=== PATIENT | female | born 1965 | race Caucasian/White ===

== ENCOUNTER 2016-09-07 01:31 | Emergency (ER) | payer MEDICAID ==
[~2016-09-07] VITALS: Ht 152.4 cm; Wt 113.4 kg
[~2016-09-07 01:31] MED LIST: ATEN-171 PO; GLIM2TAB PO; METF1000 PO
--- NOTE | 2016-09-07 01:39 | NUR ---
PT HAS HAD H/A FOR 5 DAYS. WAS SEEN AT CLINIC AND HAD BLOOD DRAWN.THEY CALLED HER AT HOME AND SHE WAS TOLD POTASSIUM ELEVATED.PT STATES WORST H/A SHE HAS HAD LATELY PT STATES H/A NEVER LAST THIS LONG... PT ALERT, ORIENTED X 4, NO RESP DISTRESS NOTED OR REPORTED UPON ASSESSMENT...MD AT BEDSIDE...
[2016-09-07] MEDS ORDERED: INSULIN (01:51)
[2016-09-07] MEDS ORDERED: METOCLOPRAMIDE HCL 10 MG/2 ML VIAL IM ONE (02:15)
[2016-09-07] MEDS ORDERED: HYDROMORPHONE 1 MG/1 ML DISP.SYRIN IM ONE (02:15)
[2016-09-07] MEDS ORDERED: BENZTROPINE MESYLATE 2 MG/2 ML AMPUL IM ONE (02:15)
[2016-09-07] MEDS ORDERED: METOCLOPRAMIDE HCL 10 MG/2 ML VIAL ONE (02:17)
[2016-09-07] MEDS ORDERED: BENZTROPINE MESYLATE 2 MG/2 ML AMPUL ONE (02:17)
[2016-09-07] MEDS ORDERED: HYDROMORPHONE 2 MG/1 ML DISP.SYRIN ONE (02:18)
[2016-09-07 03:20] LABS: ALANINE AMINOTRANSFERASE 31 U/L (14-59); ALBUMIN 3.6 g/dL (3.4-5.0); ALKALINE PHOSPHATASE 94 U/L (50-136); ASPARTATE AMINOTRANSFERASE 17 U/L (15-37); BILIRUBIN,TOTAL 0.3 mg/dL (0.2-1.0); CALCIUM 9.3 mg/dL (8.5-10.1); CARBON DIOXIDE 27 mmol/L (21-32); CHLORIDE 103 mmol/L (98-107); CREATININE 0.7 mg/dL (0.6-1.3); GFR 88 mL/min (>60); GLUCOSE 212 mg/dL (74-106); LIPASE 116 U/L (73-393); POTASSIUM 3.8 mmol/L (3.5-5.1); SODIUM SERUM 138 mmol/L (136-145); UREA NITROGEN, BLOOD 16 mg/dL (7-18)
[2016-09-07 03:30] LABS: ACETONE, SERUM NEGATIVE (NEGATIVE)
[2016-09-07 03:36] LABS: BASOPHILS # (AUTO) 0.1 K/uL (0.0-8.0); BASOPHILS % (AUTO) 0.7 % (0.0-2.0); EOSINOPHILS # (AUTO) 0.2 K/uL (0.0-0.7); EOSINOPHILS % (AUTO) 2.1 % (0.0-7.0); HEMATOCRIT 38.5 % (37-47); HEMOGLOBIN 12.6 G/DL (12.0-16.0); LYMPHOCYTES % (AUTO) 32.6 % (20.5-51.5); MEAN CORPUSCULAR HEMOGLOBIN 25.8 UUG (27.0-31.0); MEAN CORPUSCULAR HGB CONC 33 g/dL (32.0-37.0); MEAN CORPUSCULAR VOLUME 78.6 FL (81.0-99.0); MONOCYTES # (AUTO) 0.7 K/UL (0.1-1.30); MONOCYTES % (AUTO) 7.2 % (0.0-11.0); NEUTROPHILS # (AUTO) 5.2 K/UL (1.8-8.9); NEUTROPHILS % (AUTO) 57.4 % (38.5-71.5); PLATELET COUNT (AUTO) 243 K/UL (150-450); RED BLOOD CELL COUNT(AUTO) 4.89 MIL/UL (4.2-5.4); RED CELL DISTRIBUTION WIDTH 12.8 % (11.5-14.5); WHITE BLOOD COUNT (AUTO) 9.2 K/UL (4.0-11.2)
--- NOTE | 2016-09-07 04:15 | NUR ---
Patient discharged to home in stable conditon. Written and verbal after care instructions given. Patient verbalizes understanding of instructions. Pt walked out of ER unassisted with son and belongings at side...
[2016-09-07 04:30] VITALS: BP 142/94
== END 2016-09-07 04:32 | disposition home or self-care (01) ==
LOC: ER 01:35
DX: G43.909 Migraine, unspecified, not intractable, without status migrainosus (principal); E66.9 Obesity, unspecified; E11.65 Type 2 diabetes mellitus with hyperglycemia; Z79.4 Long term (current) use of insulin
CPT/HCPCS: 36415; 80053; 82009; 82962; 83690; 85025; 96372 ×3; 99284; A4663; J0515; J1170; J2765

== ENCOUNTER 2016-09-08 16:15 | Emergency (ER) | payer MEDICAID ==
[~2016-09-08] VITALS: Ht 154.9 cm; Wt 102.5 kg
[~2016-09-08 16:15] MED LIST changes: +INSULIN
[2016-09-08] MEDS: PROMETHAZINE HCL 25 MG/1 ML VIAL IM ONE (16:46)
[2016-09-08] MEDS: HYDROMORPHONE 1 MG/1 ML DISP.SYRIN IM ONE (16:46)
[2016-09-08] MEDS ORDERED: HYDROMORPHONE 2 MG/1 ML DISP.SYRIN ONE (16:50)
[2016-09-08] MEDS ORDERED: PROMETHAZINE HCL 25 MG/1 ML VIAL ONE (16:50)
[2016-09-08 16:57] LABS: *URINE HCG, QUAL NEGATIVE (NEGATIVE)
--- NOTE | 2016-09-08 17:43 | NUR ---
Patient is resting comfortably in bed with eyes closed. PATIENT IS PAIN FREE AT THIS TIME.
--- NOTE | 2016-09-08 17:59 | NUR ---
1745-Patient discharged to home in stable conditon. Written and verbal after care instructions given to patient with distribution lead from ER registration staff. Patient verbalizes understanding of instructions. Patient left ER with steady gait. Patient said her son will drive her home.
== END 2016-09-08 18:01 | disposition home or self-care (01) ==
LOC: ER 16:19
DX: R51 Headache (principal); F41.9 Anxiety disorder, unspecified; F41.0 Panic disorder [episodic paroxysmal anxiety]; E66.9 Obesity, unspecified
CPT/HCPCS: 70450; 84703; A4663; J1170; J2550

== ENCOUNTER 2017-04-10 12:16 | Emergency (ER) | payer MEDICAID ==
[~2017-04-10] VITALS: Ht 152.4 cm; Wt 100.2 kg
[2017-04-10] MEDS ORDERED: SERTRALINE 50 MG (12:32)
[2017-04-10] MEDS ORDERED: ASPIR LOW 81 MG (12:32)
[2017-04-10] MEDS ORDERED: IBUPROFEN TAB 600MG (12:32)
[2017-04-10] MEDS ORDERED: LOSARTAN POT (12:32)
[2017-04-10] MEDS ORDERED: methylPREDNISolone SOD SUCC 125 MG/2 ML VIAL IV ONE (13:15)
[2017-04-10] MEDS ORDERED: diphenhydrAMINE 50 MG/1 ML VIAL IV ONE (13:15)
[2017-04-10] MEDS ORDERED: IV NORMAL SALINE 500 ML IV ONE (13:15)
[2017-04-10] MEDS ORDERED: MORPHINE SULFATE 2 MG/1 ML DISP.SYRIN IV ONE (13:15)
[2017-04-10] MEDS ORDERED: ONDANSETRON IV *ER 4 MG/2 ML VIAL IV ONE (13:15)
[2017-04-10 13:19] LABS: BASOPHILS # (AUTO) 0.1 K/uL (0.0-8.0); BASOPHILS % (AUTO) 0.7 % (0.0-2.0); EOSINOPHILS # (AUTO) 0.1 K/uL (0.0-0.7); EOSINOPHILS % (AUTO) 1.3 % (0.0-7.0); HEMATOCRIT 43.6 % (31.2-41.9); HEMOGLOBIN 14.4 g/dL (10.9-14.3); LYMPHOCYTES # (AUTO) 2.3 K/uL (20.0-40.0); LYMPHOCYTES % (AUTO) 26.2 % (20.5-51.5); MEAN CORPUSCULAR HEMOGLOBIN 26.3 uug (24.7-32.8); MEAN CORPUSCULAR HGB CONC 33 g/dL (32.3-35.6); MEAN CORPUSCULAR VOLUME 79.4 fL (75.5-95.3); MONOCYTES # (AUTO) 0.4 K/uL (2.0-10.0); MONOCYTES % (AUTO) 4.6 % (0.0-11.0); NEUTROPHILS # (AUTO) 5.8 K/uL (1.8-8.9); NEUTROPHILS % (AUTO) 67.2 % (38.5-71.5); PLATELET COUNT (AUTO) 221 K/uL (179-408); RED BLOOD CELL COUNT(AUTO) 5.49 MIL/uL (3.63-4.92); WHITE BLOOD COUNT (AUTO) 8.7 K/uL (3.8-11.8)
[2017-04-10] MEDS ORDERED: methylPREDNISolone SOD SUCC 125 MG/2 ML VIAL ONE (13:32)
[2017-04-10] MEDS ORDERED: ONDANSETRON 4 MG/2 ML VIAL ONE (13:32)
[2017-04-10] MEDS ORDERED: diphenhydrAMINE 50 MG/1 ML VIAL ONE (13:32)
[2017-04-10] MEDS ORDERED: MORPHINE SULFATE 2 MG/1 ML DISP.SYRIN ONE (13:33)
[2017-04-10 13:37] LABS: CREATININE 0.7 mg/dL (0.6-1.3); POTASSIUM 4.5 mmol/L (3.5-5.1)
[2017-04-10 13:43] LABS: BILIRUBIN,TOTAL 0.4 mg/dL (0.2-1.0); TOTAL PROTEIN, SERUM 7.4 g/dL (6.4-8.2)
--- NOTE | 2017-04-10 13:56 | NUR ---
Pt resting in gurney with no s/s of acute distress noted, pt states she feels much better and her pain has improved (3/10).
[2017-04-10 16:03] LABS: *BILIRUBIN,URIN NEGATIVE (NEGATIVE); *BLOOD, URINE 3+ (NEGATIVE); *CLARITY,URINE SLIGHTLY CLOUDY (CLEAR); *COLOR,URINE YELLOW (YELLOW); *KETONES,URINE NEGATIVE (NEGATIVE); *PROTEIN,URINE NEGATIVE (NEGATIVE); *UROBILINOGEN,URINE 0.2 E.U./dl (NORMAL); LEUKOCYTE ESTERASE ,URINE 1+ (NEGATIVE); NITRITE, URINE NEGATIVE (NEGATIVE); PH,URINE 5.5 (5.0-8.0); UGLUCOSE TRACE (NEGATIVE)
--- NOTE | 2017-04-10 16:03 | NUR ---
Patient discharged to home in stable conditon. Written and verbal after care instructions given. Patient verbalizes understanding of instructions.translation provided tospanish by haydee girard.
[2017-04-10 16:06] VITALS: BP 140/79
[2017-04-10 16:07] LABS: BACTERIA,URINE FEW /HPF (NONE SEEN); RBC,URINE 0-3 /HPF (0-3)
[2017-04-10 16:08] LABS: SQUAMOUS EPITHELIAL CELL,UR MODERATE /HPF (NONE SEEN)
== END 2017-04-10 16:13 | disposition home or self-care (01) ==
LOC: ER 12:16
DX: G43.909 Migraine, unspecified, not intractable, without status migrainosus (principal); E11.9 Type 2 diabetes mellitus without complications; I10 Essential (primary) hypertension; Z79.4 Long term (current) use of insulin; Z88.8 Allergy status to other drugs, medicaments and biological substances
CPT/HCPCS: 36415; 70030-TC; 70450; 71010; 85025; 93005; A4663; J1200; J2270; J2405; J2930; J7030

== ENCOUNTER 2017-04-17 06:20 | Emergency (ER) | payer MEDICAID ==
[~2017-04-17] VITALS: Ht 162.6 cm; Wt 100.2 kg
[~2017-04-17 06:20] MED LIST changes: +ASPIR LOW 81 MG; -GLIM2TAB PO; +IBUPROFEN TAB 600MG; +LOSARTAN POT; +SERTRALINE 50 MG
[2017-04-17] MEDS ORDERED: diphenhydrAMINE 50 MG/1 ML VIAL IM ONE (07:15)
[2017-04-17] MEDS ORDERED: METOCLOPRAMIDE HCL 10 MG/2 ML VIAL IM ONE (07:15)
[2017-04-17] MEDS ORDERED: diphenhydrAMINE 50 MG/1 ML VIAL ONE (07:20)
[2017-04-17] MEDS ORDERED: METOCLOPRAMIDE HCL 10 MG/2 ML VIAL ONE (07:21)
--- NOTE | 2017-04-17 07:30 | NUR ---
PATIENT WAS SEEN BY MD FOR HEADACHE. REGLAN AND BENADRYL WERE GIVEN IV BY OTHER NURSE. PATIENT STATES HE HEAD HAS DIMINISHED.
--- NOTE | 2017-04-17 08:23 | NUR ---
PATIENT STATES SHE FEELS MUCH BETTER. HER SON IS AT THE BEDSIDE AND STATES HE WILL DRIVE HOME. DC, RX (INCLUDING PRECAUTIONS) GIVEN AND EXPLAINED TO PATIENT AND SON WHO STATE THEY UNDERSTAND ALL INSTRUCTIONS.
[2017-04-17 08:35] VITALS: BP 145/85
== END 2017-04-17 08:36 | disposition home or self-care (01) ==
LOC: ER 06:26
DX: G43.909 Migraine, unspecified, not intractable, without status migrainosus (principal); E11.9 Type 2 diabetes mellitus without complications; Z79.4 Long term (current) use of insulin; Z88.8 Allergy status to other drugs, medicaments and biological substances
CPT/HCPCS: 96372 ×2; 99284; A4663; J1200; J2765

== ENCOUNTER 2018-01-09 09:06 | Emergency (ER) | payer MEDICAID ==
[~2018-01-09] VITALS: Ht 162.6 cm; Wt 104.3 kg
[~2018-01-09 09:06] MED LIST changes: -ASPIR LOW 81 MG; +ASPIR LOW 81 MG PO; -LOSARTAN POT; +LOSARTAN POT PO
[2018-01-09] MEDS ORDERED: PANTOPRAZOLE SODIUM 40 MG VIAL IV ONE (09:45)
[2018-01-09] MEDS ORDERED: NPH,100V SQ (09:54)
[2018-01-09] MEDS ORDERED: INSU100V28 SQ ×2 (09:54)
[2018-01-09 09:57] LABS: *BILIRUBIN,URIN NEGATIVE (NEGATIVE); *BLOOD, URINE NEGATIVE (NEGATIVE); *COLOR,URINE YELLOW (YELLOW); *KETONES,URINE 1+ (NEGATIVE); *PROTEIN,URINE NEGATIVE (NEGATIVE); *UROBILINOGEN,URINE 0.2 E.U./dl (NORMAL); LEUKOCYTE ESTERASE ,URINE TRACE (NEGATIVE); NITRITE, URINE NEGATIVE (NEGATIVE); PH,URINE 5.5 (5.0-8.0); UGLUCOSE NEGATIVE (NEGATIVE)
[2018-01-09 09:58] LABS: *CLARITY,URINE SLIGHTLY HAZY (CLEAR)
[2018-01-09 10:00] LABS: BASOPHILS # (AUTO) 0.1 K/uL (0.0-8.0); BASOPHILS % (AUTO) 0.7 % (0.0-2.0); EOSINOPHILS # (AUTO) 0.1 K/uL (0.0-0.7); EOSINOPHILS % (AUTO) 0.9 % (0.0-7.0); HEMATOCRIT 42.1 % (31.2-41.9); HEMOGLOBIN 14.3 g/dL (10.9-14.3); LYMPHOCYTES # (AUTO) 2.3 K/uL (20.0-40.0); LYMPHOCYTES % (AUTO) 27.4 % (20.5-51.5); MEAN CORPUSCULAR HEMOGLOBIN 27.3 uug (24.7-32.8); MEAN CORPUSCULAR HGB CONC 34 g/dL (32.3-35.6); MEAN CORPUSCULAR VOLUME 80.8 fL (75.5-95.3); MONOCYTES # (AUTO) 0.4 K/uL (2.0-10.0); MONOCYTES % (AUTO) 4.4 % (0.0-11.0); NEUTROPHILS # (AUTO) 5.5 K/uL (1.8-8.9); NEUTROPHILS % (AUTO) 66.6 % (38.5-71.5); PLATELET COUNT (AUTO) 221 K/uL (179-408); RED BLOOD CELL COUNT(AUTO) 5.21 MIL/uL (3.63-4.92); WHITE BLOOD COUNT (AUTO) 8.3 K/uL (3.8-11.8)
[2018-01-09] MEDS ORDERED: PANTOPRAZOLE SODIUM 40 MG VIAL ONE (10:03)
[2018-01-09 10:04] LABS: BACTERIA,URINE FEW /HPF (NONE SEEN); RBC,URINE 0-3 /HPF (0-3)
[2018-01-09 10:05] LABS: MUCUS,URINE MODERATE /LPF (0-FEW); SQUAMOUS EPITHELIAL CELL,UR MODERATE /HPF (NONE SEEN)
[2018-01-09 10:07] LABS: CREATININE 0.7 mg/dL (0.6-1.3); POTASSIUM 3.8 mmol/L (3.5-5.1)
[2018-01-09 10:37] LABS: *URINE HCG, QUAL NEGATIVE (NEGATIVE)
[2018-01-09] MEDS ORDERED: LEVOFLOXACIN 500 MG TABLET ONE (12:12)
[2018-01-09] MEDS ORDERED: METRONIDAZOLE 500 MG TABLET ONE (12:12)
[2018-01-09] MEDS ORDERED: LEVOFLOXACIN 500 MG TABLET PO ONE (12:15)
[2018-01-09] MEDS ORDERED: METRONIDAZOLE 500 MG TABLET PO ONE (12:15)
--- NOTE | 2018-01-09 12:17 | NUR ---
Patient discharged to home in stable conditon. Written and verbal after care instructions given. Patient verbalizes understanding of instructions.
== END 2018-01-09 12:19 | disposition home or self-care (01) ==
LOC: ER 09:06
DX: K57.92 Diverticulitis of intestine, part unspecified, without perforation or abscess without bleeding (principal); E11.9 Type 2 diabetes mellitus without complications; Z88.8 Allergy status to other drugs, medicaments and biological substances
CPT/HCPCS: 36415; 74176; 76856; 80048; 81001; 84703; 85025; 96374; 99285; A4663; C9113

== ENCOUNTER 2018-09-04 08:30 | Emergency (ER) | payer MEDICAID ==
[~2018-09-04] VITALS: Ht 160 cm; Wt 104.3 kg
[~2018-09-04 08:30] MED LIST changes: -IBUPROFEN TAB 600MG; +INSU100V28 SQ; -INSULIN; +NPH,100V SQ; -SERTRALINE 50 MG
[2018-09-04] MEDS ORDERED: ONDANSETRON 4 MG/2 ML VIAL IV ONE (09:30)
[2018-09-04] MEDS ORDERED: IV NORMAL SALINE 1000 ML BAG IV ONE (09:30)
[2018-09-04] MEDS ORDERED: MORPHINE SULFATE 2 MG/1 ML DISP.SYRIN IV ONE (09:30)
--- NOTE | 2018-09-04 09:40 | NUR ---
Pt is in room #2a. dr Hayes evaluated the pt.
[2018-09-04 09:41] LABS: *BILIRUBIN,URIN NEGATIVE (NEGATIVE); *BLOOD, URINE NEGATIVE (NEGATIVE); *COLOR,URINE YELLOW (YELLOW); *KETONES,URINE NEGATIVE (NEGATIVE); *UROBILINOGEN,URINE 0.2 E.U./dl (NORMAL); LEUKOCYTE ESTERASE ,URINE TRACE (NEGATIVE); NITRITE, URINE NEGATIVE (NEGATIVE); UGLUCOSE NEGATIVE (NEGATIVE)
[2018-09-04 09:42] LABS: *CLARITY,URINE HAZY (CLEAR)
[2018-09-04 09:44] LABS: *URINE HCG, QUAL NEGATIVE (NEGATIVE)
[2018-09-04 09:52] LABS: BASOPHILS % (AUTO) 0.5 % (0.0-2.0); EOSINOPHILS # (AUTO) 0.3 K/uL (0.0-0.7); EOSINOPHILS % (AUTO) 3.1 % (0.0-7.0); HEMATOCRIT 41.6 % (31.2-41.9); HEMOGLOBIN 14.1 g/dL (10.9-14.3); LYMPHOCYTES % (AUTO) 22.5 % (20.5-51.5); MEAN CORPUSCULAR HEMOGLOBIN 26.8 uug (24.7-32.8); MEAN CORPUSCULAR HGB CONC 34 g/dL (32.3-35.6); MEAN CORPUSCULAR VOLUME 79.3 fL (75.5-95.3); MONOCYTES # (AUTO) 0.3 K/uL (2.0-10.0); MONOCYTES % (AUTO) 3.7 % (0.0-11.0); NEUTROPHILS # (AUTO) 6.1 K/uL (1.8-8.9); NEUTROPHILS % (AUTO) 70.2 % (38.5-71.5); PLATELET COUNT (AUTO) 241 K/uL (179-408); RED BLOOD CELL COUNT(AUTO) 5.25 MIL/uL (3.63-4.92); WHITE BLOOD COUNT (AUTO) 8.7 K/uL (3.8-11.8)
[2018-09-04 09:56] LABS: CREATININE 0.7 mg/dL (0.6-1.3); POTASSIUM 4.1 mmol/L (3.5-5.1)
[2018-09-04 09:58] LABS: BACTERIA,URINE MODERATE /HPF (NONE SEEN); RBC,URINE 0-3 /HPF (0-3); SQUAMOUS EPITHELIAL CELL,UR MANY /HPF (NONE SEEN); YEAST,URINE RARE /HPF (NONE SEEN)
[2018-09-04 10:02] LABS: BILIRUBIN,DIRECT 0.1 mg/dL (0.0-0.2); BILIRUBIN,TOTAL 0.4 mg/dL (0.2-1.0); TOTAL PROTEIN, SERUM 7.3 g/dL (6.4-8.2)
[2018-09-04] MEDS ORDERED: MORPHINE SULFATE 2 MG/1 ML DISP.SYRIN ONE (10:07)
[2018-09-04] MEDS ORDERED: ONDANSETRON 4 MG/2 ML VIAL ONE (10:08)
--- NOTE | 2018-09-04 12:10 | NUR ---
PT WAS D/C'd TO HOME D/C INSTRUCTIONS GIVEN TO THE PT.
[2018-09-04 12:12] VITALS: BP 136/84
== END 2018-09-04 12:16 | disposition home or self-care (01) ==
LOC: ER 08:30
DX: R10.32 Left lower quadrant pain (principal); R11.0 Nausea; E11.9 Type 2 diabetes mellitus without complications; Z88.8 Allergy status to other drugs, medicaments and biological substances; Z79.4 Long term (current) use of insulin; Z79.899 Other long term (current) drug therapy; Z79.82 Long term (current) use of aspirin
CPT/HCPCS: 36415; 74176; 76856; 80048; 80076; 81001; 84703; 85025; 96374; 96375; 99284; J2270; J2405; A4663; J7030

== ENCOUNTER 2018-09-04 22:25 | Emergency (ER) | payer MEDICAID ==
[~2018-09-04] VITALS: Ht 165.1 cm; Wt 99.8 kg
[2018-09-04] MEDS ORDERED: HYDROMORPHONE 1 MG/1 ML DISP.SYRIN IM ONE (23:00)
[2018-09-04] MEDS ORDERED: ONDANSETRON 4 MG/2 ML VIAL IM ONE (23:00)
[2018-09-04] MEDS ORDERED: HYDROMORPHONE 2 MG/1 ML DISP.SYRIN ONE (23:19)
[2018-09-04] MEDS ORDERED: ONDANSETRON 4 MG/2 ML VIAL ONE (23:19)
[2018-09-05 00:49] VITALS: BP 120/58
== END 2018-09-05 00:25 | disposition home or self-care (01) ==
LOC: ER 22:27
DX: G43.909 Migraine, unspecified, not intractable, without status migrainosus (principal); E11.9 Type 2 diabetes mellitus without complications; Z88.8 Allergy status to other drugs, medicaments and biological substances; Z79.4 Long term (current) use of insulin; Z79.899 Other long term (current) drug therapy
CPT/HCPCS: 96372 ×2; 99283; J1170; J2405; A4663

== ENCOUNTER 2020-02-06 18:27 | Emergency (ER) | payer MEDICAID ==
[~2020-02-06] VITALS: Ht 162.6 cm; Wt 100.7 kg
--- NOTE | 2020-02-06 18:50 | NUR ---
PT IS IN ROOM #1B. DR ARROYO EVALUATED THE PT.
[2020-02-06] MEDS ORDERED: KETOROLAC TROMETHAMINE 30 MG INJ IVP ONE (19:00)
[2020-02-06] MEDS ORDERED: PROCHLORPERAZINE EDISYLATE 10 MG/2 ML VIAL IV ONE (19:00)
[2020-02-06] MEDS ORDERED: diphenhydrAMINE 50 MG/1 ML VIAL IV ONE (19:00)
--- NOTE | 2020-02-06 19:05 | NUR ---
Assumed care for patient at this time from Marco ZUNIGA. Pt is AO x 4, greek speaking. Leandro assisted MD and RN in translating for patient, consent for IV contrast witnessed by RN. Pt is not in active distress at this time.
[2020-02-06 19:15] LABS: *BILIRUBIN,URIN NEGATIVE (NEGATIVE); *BLOOD, URINE NEGATIVE (NEGATIVE); *CLARITY,URINE CLEAR (CLEAR); *COLOR,URINE YELLOW (YELLOW); *KETONES,URINE NEGATIVE (NEGATIVE); *UROBILINOGEN,URINE 0.2 E.U./dl (NORMAL); LEUKOCYTE ESTERASE ,URINE NEGATIVE (NEGATIVE); NITRITE, URINE NEGATIVE (NEGATIVE); PH,URINE 5.5 (5.0-8.0); UGLUCOSE TRACE (NEGATIVE)
[2020-02-06 19:18] LABS: *URINE HCG, QUAL NEGATIVE (NEGATIVE)
[2020-02-06 19:27] LABS: BASOPHILS # (AUTO) 0.1 K/uL (0.0-8.0); EOSINOPHILS # (AUTO) 0.3 K/uL (0.0-0.7); EOSINOPHILS % (AUTO) 3.1 % (0.0-7.0); HEMATOCRIT 42.6 % (31.2-41.9); HEMOGLOBIN 14.1 g/dL (10.9-14.3); LYMPHOCYTES # (AUTO) 3.9 K/uL (20.0-40.0); LYMPHOCYTES % (AUTO) 40.4 % (20.5-51.5); MEAN CORPUSCULAR HEMOGLOBIN 26.7 uug (24.7-32.8); MEAN CORPUSCULAR HGB CONC 33 g/dL (32.3-35.6); MEAN CORPUSCULAR VOLUME 80.3 fL (75.5-95.3); MONOCYTES # (AUTO) 0.6 K/uL (2.0-10.0); MONOCYTES % (AUTO) 6.4 % (0.0-11.0); NEUTROPHILS # (AUTO) 4.8 K/uL (1.8-8.9); NEUTROPHILS % (AUTO) 49.1 % (38.5-71.5); WHITE BLOOD COUNT (AUTO) 9.7 K/uL (3.8-11.8)
[2020-02-06] MEDS ORDERED: diphenhydrAMINE 50 MG/1 ML VIAL ONE (19:27)
[2020-02-06] MEDS ORDERED: KETOROLAC TROMETHAMINE 30 MG INJ ONE (19:27)
[2020-02-06] MEDS ORDERED: PROCHLORPERAZINE EDISYLATE 10 MG/2 ML VIAL ONE (19:27)
[2020-02-06 19:33] LABS: CREATININE 0.7 mg/dL (0.6-1.3); POTASSIUM 4.2 mmol/L (3.5-5.1)
[2020-02-06 19:37] LABS: PLATELET COUNT (AUTO) 188 K/uL (179-408)
[2020-02-06 19:38] LABS: BILIRUBIN,DIRECT 0.1 mg/dL (0.0-0.2); BILIRUBIN,TOTAL 0.2 mg/dL (0.2-1.0); TOTAL PROTEIN, SERUM 7.6 g/dL (6.4-8.2)
[2020-02-06] MEDS ORDERED: IOHEXOL 300MG/ML 100 ML INFUS..BTL ONE (19:41)
[2020-02-06] MEDS ORDERED: IV NORMAL SALINE 250 ML IV ONE (19:41)
[2020-02-06] MEDS ORDERED: SWABABLE VALVE TRANSFER SET EA MC ONE (19:41)
--- NOTE | 2020-02-06 19:45 | NUR ---
Pt is down for CT at this time.
--- NOTE | 2020-02-06 20:05 | NUR ---
Back from CT, Law Firm Administrator at bedside.
--- NOTE | 2020-02-06 21:00 | NUR ---
Pt verbalized feeling better and having 0/10 pain. MD reevaluated pt and cleared for DC. IV removed. Catheter intact and site benign. Pressure and 4x4 gauze applied to site. No bleeding noted. Written and verbal after care instructions given in Dominican with Cori merino MD/RN teachings. Patient verbalizes understanding of instructions. Stressed follow up with PMD or specialist referred by ER MD, or return to ER for worsening s/s. Patient ambulated out of ER with steady gait, son will take pt home , left in stable condition.
[2020-02-06 21:02] VITALS: BP 142/95
== END 2020-02-06 21:00 | disposition home or self-care (01) ==
LOC: ER 18:29
DX: R10.9 Unspecified abdominal pain (principal); G43.909 Migraine, unspecified, not intractable, without status migrainosus; E66.01 Morbid (severe) obesity due to excess calories; Z68.38 Body mass index [BMI] 38.0-38.9, adult; R03.0 Elevated blood-pressure reading, without diagnosis of hypertension; E11.9 Type 2 diabetes mellitus without complications; Z79.84 Long term (current) use of oral hypoglycemic drugs; Z79.82 Long term (current) use of aspirin; K57.30 Diverticulosis of large intestine without perforation or abscess without bleeding; N83.201 Unspecified ovarian cyst, right side
CPT/HCPCS: 36415; 74177; 76705; 80048; 80076; 81001; 83690; 84703; 85025; 96374; 96375; 99285; J0780; J1200; J1885; Q9967; J7050

== ENCOUNTER 2021-03-05 05:57 | Emergency (ER) | payer MEDICAID ==
[~2021-03-05] VITALS: Ht 165.1 cm; Wt 74.8 kg
[2021-03-05] MEDS ORDERED: LIDOCAINE VISCUS 2% 15 ML UDC MM ONE (07:00)
[2021-03-05] MEDS ORDERED: IV NORMAL SALINE 1000 ML BAG IV ONE (07:00)
[2021-03-05] MEDS ORDERED: FAMOTIDINE. 20 MG/2 ML VIAL IV ONE ×2 (07:00→07:41)
[2021-03-05] MEDS ORDERED: diphenhydrAMINE 50 MG/1 ML VIAL IV ONE (07:00)
[2021-03-05] MEDS ORDERED: METOCLOPRAMIDE HCL 10 MG/2 ML VIAL IV ONE (07:00)
[2021-03-05] MEDS ORDERED: MAG HYDROX/AL HYDROX/SIMETH 30 ML LIQUID UDC PO ONE (07:00)
[2021-03-05 07:32] LABS: MEAN CORPUSCULAR HEMOGLOBIN 26.9 uug (24.7-32.8); MEAN CORPUSCULAR VOLUME 80.2 fL (75.5-95.3); PLATELET COUNT (AUTO) 217 K/uL (179-408)
[2021-03-05 07:39] LABS: CREATININE 0.7 mg/dL (0.6-1.3); POTASSIUM 4.4 mmol/L (3.5-5.1)
[2021-03-05] MEDS ORDERED: METOCLOPRAMIDE HCL 10 MG/2 ML VIAL ONE (07:40)
[2021-03-05] MEDS ORDERED: diphenhydrAMINE 50 MG/1 ML VIAL ONE (07:40)
[2021-03-05] MEDS ORDERED: LIDOCAINE VISCUS 2% 15 ML UDC ONE (07:41)
[2021-03-05] MEDS ORDERED: MAG HYDROX/AL HYDROX/SIMETH 30 ML LIQUID UDC ONE (07:41)
[2021-03-05 07:45] LABS: BILIRUBIN,DIRECT 0.1 mg/dL (0.0-0.2); BILIRUBIN,TOTAL 0.3 mg/dL (0.2-1.0); TOTAL PROTEIN, SERUM 7.5 g/dL (6.4-8.2)
[2021-03-05] MEDS ORDERED: ACETAMINOPHEN 325 MG TABLET PO ONE (08:00)
--- NOTE | 2021-03-05 08:16 | NUR ---
Pt returned to unit from radiology. States improvement in S/S with no more pain to abd. Statea MCKENZIE 07/27. PO medication administered per order. Pt denies any adverse event from medication previously administered, feeling drowzy. Resting supine in NAD at this time.
[2021-03-05 08:20] LABS: *BILIRUBIN,URIN NEGATIVE (NEGATIVE); *BLOOD, URINE NEGATIVE (NEGATIVE); *CLARITY,URINE CLEAR (CLEAR); *COLOR,URINE YELLOW (YELLOW); *KETONES,URINE 1+ (NEGATIVE); *UROBILINOGEN,URINE 0.2 E.U./dl (NORMAL); LEUKOCYTE ESTERASE ,URINE NEGATIVE (NEGATIVE); NITRITE, URINE NEGATIVE (NEGATIVE); PH,URINE 5.5 (5.0-8.0); UGLUCOSE TRACE (NEGATIVE)
[2021-03-05 08:21] LABS: *URINE HCG, QUAL NEG (NEGATIVE)
[2021-03-05] MEDS ORDERED: ACETAMINOPHEN 325 MG TABLET ONE (08:21)
[2021-03-05] MEDS ORDERED: ONDA4TAB5 PO (09:05)
[2021-03-05] MEDS ORDERED: FAMO-132 PO (09:05)
--- NOTE | 2021-03-05 09:18 | NUR ---
Removed IV intact, site okay, bandaged. Gave pt RX and d/c instructions, pt verbalized understanding. Translated by staff.
[2021-03-05 09:21] VITALS: BP 138/49
== END 2021-03-05 09:22 | disposition home or self-care (01) ==
LOC: ER 05:59
DX: R10.11 Right upper quadrant pain (principal); R51.9 Headache, unspecified; K57.90 Diverticulosis of intestine, part unspecified, without perforation or abscess without bleeding; R16.0 Hepatomegaly, not elsewhere classified; E11.9 Type 2 diabetes mellitus without complications; Z79.4 Long term (current) use of insulin
CPT/HCPCS: 36415; 74176; 76705; 80048; 80076; 81003; 83690; 84484; 84703; 85025; 93005; 96361; 96374; 96375; 99285; J1200; J2765; J3490; 70030-TC; A4663; J7030